=== PATIENT | female | born 1995 | race Caucasian/White ===

== ENCOUNTER 2019-04-02 16:47 | Emergency (ER) | payer OTHER ==
[2019-04-02] MEDS ORDERED: Acetaminophen-Codeine 300-30mg TAB PO STA (17:49)
[2019-04-02] MEDS ORDERED: KETOROLAC 60 MG/2 ML VIAL IM STA (17:49)
--- NOTE | 2019-04-02 17:50 | ED ---
Female Urogenital HPI - General Chief complaint: Abdominal Pain Stated complaint: syncope Time Seen by Provider: 04/02/19 17:37 Source: patient, RN notes reviewed, old records reviewed Mode of arrival: ambulatory Limitations: no limitations - History of Present Illness Initial comments: This is a 23-year-old female the ER for evaluation. She presents today for evaluation regards to pelvic pain pain that was so severe causing almost a near syncopal event. No recent nausea vomiting diarrhea or vaginal bleeding. PAtient has been without eriod or menses for five years. MD Complaint: pelvic pain -: hour(s) Location: suprapubic Radiation: suprapubic Severity: severe Severity scale (1-10): 10 Quality: cramping, sharp Consistency: constant Improves with: none Worsens with: none Patient : No Associated Symptoms: other (history of metromenorrhagia) - Related Data Home Medications Medication Instructions Recorded Confirmed Norethindrone-E.estradiol-Iron 1 tab PO DAILY 04/02/19 04/02/19 [Junel Fe 1 mg-20 Mcg Tablet] Allergies Allergy/AdvReac Type Severity Reaction Status Date / Time No Known Allergies Allergy Verified 04/02/19 17:31 Review of Systems ROS Statement: Those systems with pertinent positive or pertinent negative responses have been documented in the HPI. ROS Other: All systems not noted in ROS Statement are negative. Past Medical History Past Medical History: No Reported History Additional Past Medical History / Comment(s): endometrosis History of Any Multi-Drug Resistant Organisms: None Reported Past Surgical History: No Surgical Hx Reported Past Psychological History: No Psychological Hx Reported Smoking Status: Never smoker Past Alcohol Use History: None Reported Past Drug Use History: None Reported General Exam Limitations: no limitations General appearance: alert, in no apparent distress Head exam: Present: atraumatic, normocephalic, normal inspection Eye exam: Present: normal appearance, PERRL, EOMI. Absent: scleral icterus, c onjunctival injection, periorbital swelling ENT exam: Present: normal exam, mucous membranes moist Neck exam: Present: normal inspection. Absent: tenderness, meningismus, lymphadenopathy Respiratory exam: Present: normal lung sounds bilaterally. Absent: respiratory distress, wheezes, rales, rhonchi, stridor Cardiovascular Exam: Present: regular rate, normal rhythm, normal heart sounds. Absent: systolic murmur, diastolic murmur, rubs, gallop, clicks GI/Abdominal exam: Present: soft, normal bowel sounds. Absent: distended, tenderness, guarding, rebound, rigid Extremities exam: Present: normal inspection, full ROM, normal capillary refill. Absent: tenderness, pedal edema, joint swelling, calf tenderness Back exam: Present: normal inspection Neurological exam: Present: alert, oriented X3, CN II-XII intact Psychiatric exam: Present: normal affect, normal mood Skin exam: Present: warm, dry, intact, normal color. Absent: rash Course Vital Signs 04/02/19 04/02/19 17:06 19:19 Temperature 98.3 F 98.1 F Pulse Rate 76 74 Respiratory 18 19 Rate Blood Pressure 116/80 116/81 O2 Sat by Pulse 100 93 L Oximetry Medical Decision Making - Medical Decision Making 23 female the ER for evaluation. Patient resents today for evaluation of pain pelvic pain. Ultrasound of pelvis and URINE NEGATIVE. PATIENT CAN BE DISCHARGED HOME - Lab Data Lab Results 04/02/19 04/02/19 Range/Units 18:03 18:03 Urine Color Yellow Urine Appearance Cloudy H (Clear) Urine pH 8.0 (5.0-8.0) Ur Specific [place] 1.023 (1.001-1.035) Urine Protein Trace H (Negative) Urine Glucose (UA) Negative (Negative) Urine Ketones Negative (Negative) Urine Blood Negative (Negative) Urine Nitrite Negative (Negative) Urine Bilirubin Negative (Negative) Urine Urobilinogen 2.0 (<2.0) mg/dL Ur Leukocyte Esterase Trace H (Negative) Urine RBC 1 (0-5) /hpf Urine WBC 3 (0-5) /hpf Ur Squamous Epith Cells 2 (0-4) /hpf Urine Bacteria Rare H (None) /hpf Urine Mucus Many H (None) /hpf Urine HCG, Qual Not Detected (Not Detectd) - Radiology Data Radiology results: report reviewed (XL ultrasound pelvis showing ovarian cyst), image reviewed Disposition Clinical Impression: Abdominal pain, Pelvic pain Disposition: HOME SELF-CARE Condition: Good Instructions (If sedation given, give patient instructions): Pelvic Pain (ED) Is patient prescribed a controlled substance at d/c from ED?: No Referrals: Rita Juarez MD [Primary Care Provider] - 1-2 days
[2019-04-02 18:12] LABS: Appearance,Urine Cloudy (Clear); Bacteria,Urine Rare /hpf; Bilirubin,Urine Negative (Negative); Blood,Urine Negative (Negative); Color,Urine Yellow; Glucose,Urine (UA) Negative (Negative); Ketones,Urine Negative (Negative); Leukocyte Esterase,Urine Trace (Negative); Mucus,Urine Many /hpf; Nitrite,Urine Negative (Negative); Protein,Urine Trace (Negative); RBC,Urine 1 /hpf (0-5); Specific Gravity,Urine 1.023 (1.001-1.035); Squamous Epithelial Cell,Urine 2 /hpf (0-4); WBC,Urine 3 /hpf (0-5)
--- NOTE | 2019-04-02 20:02 | US ---
EXAMINATION TYPE: US transvaginal DATE OF EXAM: 04/02/2019 COMPARISON: NONE CLINICAL HISTORY: Pain. ON BCP NO PERIOD IN 2 YEARS PATIENT HAS ENDOMETRIOSIS. TECHNIQUE: Transvaginal (TV EXAM MEASUREMENTS: Uterus: 7.5 x 3.6 4.2 cm Endometrial Stripe: 0.3 cm Right Ovary: 4.4 x 3.2 x 3.2 cm Left Ovary: 2.1 x 1.2 x 1.3 cm 1. Uterus: Anteverted Fluid seen in the cervix. 2. Endometrium: wnl 3. Right Ovary: Cystic area seen measuring 3.7 x 2.0 x 1.9cm. 4. Left Ovary: wnl Spectral, color and waveform doppler imaging shows good arterial and venous flow within the ovaries ; there is no evidence for ovarian torsion. 5. Bilateral Adnexa: Fluid seen in the right adnexa. 6. Posterior cul-de-sac: Fluid seen. IMPRESSION: Right ovarian cyst, likely functional, with small volume anechoic cul-de-sac fluid.
[2019-04-02 20:22] VITALS: BP 110/88; PULSE 70; RESP 18; TEMP 98.4
== END 2019-04-02 20:22 | disposition home or self-care (01) ==
LOC: EC 16:47
DX: R10.2 Pelvic and perineal pain (principal); Z79.3 Long term (current) use of hormonal contraceptives
CPT/HCPCS: 81001; 81025; 87086; 76830; 99284; 96372; J1885; 93975